=== PATIENT | female | born 1940 | race Caucasian/White ===

== ENCOUNTER 2018-07-11 16:07 | Emergency (ER) | payer OTHER ==
[~2018-07-11] VITALS: Ht 160 cm; Wt 68.0 kg
[~2018-07-11 16:07] MED LIST: ASPI-1093 PO; CIPR250T6 PO; DICL-388 PO; DIT5 PO; INSU10SU8 SUBQ; ISOS10TA9 PO; LYR50 PO; METF500T PO; METO25TE2 PO; NITR100C7 PO; OMEG1SGL6 PO; OMEP20EC4 PO; PHEN-329 PO; PRAV40TA1 PO; VIGOS RIGHT EYE; [UNRECOGNIZED DRUG - CODE] RIGHT EYE
[2018-07-11 16:08] VITALS: BP 112/52
[2018-07-11 17:04] VITALS: BP 112/52
== END 2018-07-11 17:05 | disposition short-term general hospital (02) ==
LOC: MED 16:07
DX: I63.9 Cerebral infarction, unspecified (principal); R47.89 Other speech disturbances; I10 Essential (primary) hypertension; R91.1 Solitary pulmonary nodule; E11.9 Type 2 diabetes mellitus without complications; Z79.899 Other long term (current) drug therapy; Z79.84 Long term (current) use of oral hypoglycemic drugs
CPT/HCPCS: 70450; 71045; 99291

== ENCOUNTER 2019-01-07 18:46 | Inpatient (IN) | payer OTHER ==
[~2019-01-07] VITALS: Ht 152.4 cm; Wt 54.0 kg
[2019-01-07] MEDS: NACL 0.9% 1,000 ML IV SCH (11:30)
[~2019-01-07 18:46] MED LIST changes: -CIPR250T6 PO; -INSU10SU8 SUBQ; +NOV7030 SUBQ
[2019-01-07 18:47] VITALS: BP 175/71
--- NOTE | 2019-01-07 18:55 | NUR ---
spoke with about possible code brain---
--- NOTE | 2019-01-07 19:06 | NUR ---
PT BIB DAUGHTER, wheelchair assisted from car, daughter stated she awoke pt from nap at 4pm noted pt c/o weakness unable to stand on her own as she normally is able, AT 5pm complete weakness unable to apply any weight ble. left sided facial droop residual for pt; hot to touch. full clear speech, denies headache or dizziness. denies n/v/d. VSS. ER MD TO SEE PT. hx---cva, mi, cad, hyperlipidemia, dm, brain tumor/lung rx----no list at this time
[2019-01-07 19:21] LABS: BASOPHILS % (AUTO) 0.6 % (0.0-2.0); EOSINOPHILS # (AUTO) 0.1 K/uL (0-0.4); EOSINOPHILS % (AUTO) 1.2 % (0.0-4.0); HEMATOCRIT 33.7 % (36-48); HEMOGLOBIN 10.9 g/dL (12.0-16.0); LYMPHOCYTES # (AUTO) 1.9 K/uL (2.5-16.5); LYMPHOCYTES % (AUTO) 29.3 % (20.5-51.1); MEAN CORPUSCULAR HEMOGLOBIN 32 pg (27-31); MEAN CORPUSCULAR HGB CONC 33 g/dL (33-37); MEAN CORPUSCULAR VOLUME 98.9 fL (80-94); MONOCYTES # (AUTO) 0.6 K/uL (0.8-1.0); MONOCYTES % (AUTO) 8.7 % (1.7-9.3); NEUTROPHILS # (AUTO) 3.8 K/uL (1.8-7.7); NEUTROPHILS % (AUTO) 60.2 % (42.2-75.2); PLATELET COUNT (AUTO) 226 K/uL (140-450); RED CELL DISTRIBUTION WIDTH 14.6 % (11.6-13.7); WHITE BLOOD COUNT (AUTO) 6.4 K/uL (4.8-10.8)
[2019-01-07] MEDS ORDERED: ACETAMINOPHEN EXTRA STRENGTH 500 MG TAB PO ONE (19:30)
[2019-01-07] MEDS ORDERED: NACL 0.9% 1,000 ML IV ONE (19:30)
--- NOTE | 2019-01-07 19:37 | NUR ---
Iliana from [facility] called to report critical report. Impression: No intracranial bleed is identified. Dr. Cartwright made aware.
[2019-01-07 19:38] LABS: ANION GAP 18.1 (8-16); CARBON DIOXIDE 21.4 mmol/L (21-32); CHLORIDE 101 mmol/L (98-107); CREATININE 1.2 mg/dL (0.6-1.3); GLUCOSE 168 mg/dL (74-106); POTASSIUM 4.5 mmol/L (3.5-5.1); SODIUM SERUM 136 mmol/L (136-145); UREA NITROGEN, BLOOD 19 mg/dL (7-18)
[2019-01-07 19:39] LABS: PROTHROMBIN TIME 9.6 secs (10.8-13.4)
[2019-01-07 19:44] LABS: ALBUMIN 3.5 g/dL (3.4-5.0); ASPARTATE AMINOTRANSFERASE 11 U/L (15-37); TOTAL BILIRUBIN 0.7 mg/dL (0.0-1.0)
--- NOTE | 2019-01-07 20:00 | NUR ---
PT IN BED RESTING WITH EYES CLOSED. AFEBRILE. 99.9 WITH VSS. POSITIONED IN BED FOR COMFORT. FAMILY AT BEDSIDE. NO C/O PAIN. ALERT TO NAME TIME AND PLACE. CONTINUE TO MONITOR.
[2019-01-07 20:08] LABS: APPEARANCE,URINE CLOUDY (CLEAR); BILIRUBIN,URINE 1+ (NEGATIVE); BLOOD, URINE NEGATIVE (NEGATIVE); COLOR,URINE YELLOW (YELLOW); LEUKOCYTE ESTERASE ,URINE 2+ (NEGATIVE); NITRITE, URINE NEGATIVE (NEGATIVE); PH,URINE 6.5 (5.0-9.0); UGLUCOSE NEGATIVE (NEGATIVE)
[2019-01-07 20:11] LABS: RBC,URINE 0-5 /HPF (0-5); WBC,URINE 16-25 (MOD) /HPF (0-5)
[2019-01-07] MEDS ORDERED: LEVOFLOXACIN 750 MG/D5W PREMIX 150 ML IV ONE (20:20)
--- NOTE | 2019-01-07 20:30 | NUR ---
EKG PERFORMED AT BEDSIDE
[2019-01-07] MEDS ORDERED: NACL 0.9% 500 ML IV ONE (20:50)
[2019-01-07] MEDS ORDERED: DULO30EC PO (21:00)
[2019-01-07] MEDS ORDERED: METO50TE2 PO (21:00)
[2019-01-07] MEDS ORDERED: METF500T PO (21:00)
[2019-01-07] MEDS ORDERED: ERGO50CA PO (21:00)
[2019-01-07] MEDS ORDERED: DULA0.75 SQ (21:00)
[2019-01-07] MEDS ORDERED: SERT25TA PO (21:00)
[2019-01-07] MEDS ORDERED: NIAC500T6 PO (21:00)
[2019-01-07] MEDS ORDERED: ATOR40TA PO (21:00)
[2019-01-07] MEDS ORDERED: LOSA100T51 PO (21:00)
[2019-01-07] MEDS ORDERED: INSU100S22 SQ (21:00)
[2019-01-07] MEDS ORDERED: DIT5 PO (21:00)
[2019-01-07] MEDS ORDERED: ZET10 PO (21:00)
[2019-01-07] MEDS ORDERED: BUPR75TA3 PO (21:00)
--- NOTE | 2019-01-07 21:00 | NUR ---
PT IN BED RESTING WITH EYES CLOSED. NO C/O PAIN. ALERT TO NAME TIME AND PLACE. POSITIONED IN BED FOR COMFORT. FAMILY AT BEDSIDE. CONTINUE TO MONITOR.
--- NOTE | 2019-01-07 21:27 | NUR ---
PT TAKEN TO CT
--- NOTE | 2019-01-07 21:43 | NUR ---
PT BACK FROM CT
[2019-01-07] MEDS ORDERED: ACETAMINOPHEN 325 MG TAB PO PRN (23:25)
[2019-01-07] MEDS ORDERED: MORPHINE SULFATE 4 MG/ML SYR IVP PRN (23:25)
[2019-01-07] MEDS ORDERED: ALBUTEROL 0.083% 2.5 MG/3 ML NEBU INH PRN (23:25)
[2019-01-07] MEDS ORDERED: hydrALAZINE 20 MG/ML VIAL IVP PRN (23:25)
[2019-01-07] MEDS ORDERED: ONDANSETRON 4 MG/2 ML VIAL IVP PRN (23:25)
[2019-01-07] MEDS ORDERED: INSULIN LISPRO SLIDING SCALE 100 UNITS/ML VIAL SUBQ PRN (23:25)
[2019-01-07] MEDS ORDERED: DULAGLUTIDE 0.75 MG SQ SCH (23:25)
[2019-01-07] MEDS ORDERED: DEXTROSE 50% 50 ML SYR IVP PRN (23:25)
[2019-01-08 00:45] VITALS: BP 90/58
--- NOTE | 2019-01-08 00:45 | NUR ---
REPORT GIVEN AND CARE TRANSFERED TO [facility] ROOM 128B. TRANSFERED VIA GURNEY WITH VSS.
--- NOTE | 2019-01-08 00:45 | NUR ---
PT ARRIVED TO UNIT VIA GURNEY AND WAS ASSISTED BY TWO ER NURSES TO AMBULATE TO UNIT BED. PT SON AT BEDSIDE. RECEIVED REPORT FROM ER NURSE JOE-RN AT BEDSIDE. PT AOX4- VIETNAMESE SPEAKING, ON 2L/NC, WITH LEFT HAND #22G, AND WITH LEFT SIDED WEAKNESS- USES WALKER AT BASELINE. DISCUSSED PLAN OF CARE AND PT VERBALIZED UNDERSTANDING. VITAL SIGNS TAKEN AND TOLERATED WELL- DECREASED BP NOTED. NO S/S OF RESPIRATORY DISTRESS OR DISCOMFORT NOTED AT THIS TIME. MRSA SWAB COLLECTED AND TOLERATED WELL. EDUCATED PT DIRECTOR OF STRATEGIC SALES LIGHT AND BED FUNCTIONS- PT VERBALIZED UNDERSTANDING. BED IN LOWEST POSITION, BED BREAKS ON, BOTH SIDE RAILS UP AND FALL PRECAUTIONS ARE IN PLACE. BED SIDE TABLE AND CALL LIGHT ARE WITHIN REACH. WILL CONTINUE OT MONITOR.
[2019-01-08] MEDS ORDERED: cefTRIAXone 1,000 MG VIAL ONE (01:12)
--- NOTE | 2019-01-08 01:17 | NUR ---
SCHEDULED MEDICATION ROCEPHIN GIVEN AND TOLERATED WELL. NO S/S OF RESPIRATORY DISTRESS OR DISCOMFORT NOTED AT THIS TIME. WILL CONTINUE TO MONITOR.
--- NOTE | 2019-01-08 02:30 | NUR ---
CORIN GUNN ASSISTING PT WITH DIAPER CHANGE AFTER INCONTINENT OF URINE. PT TOLERATED WELL. NO S/S OF RESPIRATORY DISTRESS OR DISCOMFORT NOTED AT THIS TIME. WILL CONTINUE TO MONITOR.
[2019-01-08 04:00] VITALS: BP 152/67
--- NOTE | 2019-01-08 04:00 | NUR ---
VITAL SIGNS TAKEN AND TOLERATED WELL. NO S/S OF RESPIRATORY DISTRESS OR DISCOMFORT NOTED AT THIS TIME. WILL CONTINUE TO MONITOR.
--- NOTE | 2019-01-08 06:00 | NUR ---
PT CONTINUES TO SLEEP IN BED. NO S/S OF RESPIRATORY DISTRESS OR DISCOMFORT NOTED AT THIS TIME. WILL CONTINUE TO MONITOR.
[2019-01-08] MEDS: BLOOD GLUCOSE MONITORING 1 DEV DEV FS SCH ×4 (06:33→21:00)
[2019-01-08 06:34] LABS: BASOPHILS % (AUTO) 0.6 % (0.0-2.0); EOSINOPHILS # (AUTO) 0.1 K/uL (0-0.4); EOSINOPHILS % (AUTO) 1.6 % (0.0-4.0); HEMATOCRIT 30.3 % (36-48); LYMPHOCYTES # (AUTO) 2.1 K/uL (2.5-16.5); LYMPHOCYTES % (AUTO) 39.9 % (20.5-51.1); MEAN CORPUSCULAR HEMOGLOBIN 33 pg (27-31); MEAN CORPUSCULAR HGB CONC 33 g/dL (33-37); MEAN CORPUSCULAR VOLUME 99.6 fL (80-94); MONOCYTES # (AUTO) 0.6 K/uL (0.8-1.0); MONOCYTES % (AUTO) 11.4 % (1.7-9.3); NEUTROPHILS # (AUTO) 2.5 K/uL (1.8-7.7); NEUTROPHILS % (AUTO) 46.5 % (42.2-75.2); PLATELET COUNT (AUTO) 179 K/uL (140-450); RED BLOOD CELL COUNT(AUTO) 3.04 MIL/uL (4.20-5.40); RED CELL DISTRIBUTION WIDTH 14.4 % (11.6-13.7); WHITE BLOOD COUNT (AUTO) 5.3 K/uL (4.8-10.8)
--- NOTE | 2019-01-08 06:34 | NUR ---
BLOOD GLUCOSE 110- NO INSULIN COVERAGE NEEDED. NO S/S OF RESPIRATORY DISTRESS OR DISCOMFORT NOTED AT THIS TIME. WILL CONTINUE TO MONITOR.
--- NOTE | 2019-01-08 07:00 | NUR ---
RECEIVED PT FROM [facility] SHIFT [facility], PT IS AWAKE AND LYING ON THE BED WITH SIDE RAILS UP AND CALL LIGHT WITHIN REACH, PT ON FALL PRECAUTION,FALL PRECAUTION ENFORCED, PT HAS AN IV LINE ON THE LEFT HAND G. 22 ON SALINE LOCK, PT DENEIS PAIN AND NO SOB NOTED. WILL MONITOR PT.
[2019-01-08 07:02] LABS: CHLORIDE 108 mmol/L (98-107); POTASSIUM 4.2 mmol/L (3.5-5.1); SODIUM SERUM 144 mmol/L (136-145)
[2019-01-08 07:03] LABS: ANION GAP 16.4 (8-16); CARBON DIOXIDE 23.8 mmol/L (21-32); GLUCOSE 114 mg/dL (74-106); UREA NITROGEN, BLOOD 16 mg/dL (7-18)
[2019-01-08 07:13] LABS: MAGNESIUM 1.6 mg/dL (1.8-2.4); PHOSPHORUS 4.2 mg/dL (2.5-4.9)
[2019-01-08 08:00] VITALS: BP 121/54
--- NOTE | 2019-01-08 08:44 | NUR ---
PATIENT HAS BEEN SCREENED AND CATEGORIZED HIGH NUTRITION RISK. PATIENT WILL BE SEEN WITHIN 1-2 DAYS OF ADMISSION. 01/08/19-01/09/[address]
[2019-01-08] MEDS ORDERED: ERGOCALCIFEROL 50,000 IU CAP PO SCH (09:00)
[2019-01-08] MEDS: OXYBUTYNIN 5 MG TAB PO SCH ×2 (09:05→22:19)
[2019-01-08] MEDS: buPROPion 75 MG TAB PO SCH ×2 (09:06→22:22)
[2019-01-08] MEDS: NIACIN 500 MG TAB PO SCH ×2 (09:06→22:21)
[2019-01-08] MEDS: SERTRALINE 50 MG TAB PO SCH (09:07)
[2019-01-08] MEDS: EZETIMIBE 10 MG TAB PO SCH (09:08)
[2019-01-08] MEDS: metFORMIN 500 MG TAB PO SCH ×2 (09:08→22:20)
[2019-01-08] MEDS: DULoxetine 30 MG CAPDR PO SCH ×2 (09:08→22:19)
[2019-01-08] MEDS: LOSARTAN 50 MG TAB PO SCH (09:09)
[2019-01-08] MEDS: INSULIN LANTUS 100 UNITS/ML 10 ML VIAL SUBQ SCH ×2 (09:12→22:22)
[2019-01-08] MEDS: ENOXAPARIN 40 MG/0.4 ML SYR SUBQ SCH (09:12)
--- NOTE | 2019-01-08 11:15 | NUR ---
DR. ANDRADE CAME TO PT'S ROOM AND TALKED TO PT.
--- NOTE | 2019-01-08 11:30 | NUR ---
PT WAS STARTED ON IVF OF NS AT 60ML/HR.
[2019-01-08 12:00] VITALS: BP 122/60
--- NOTE | 2019-01-08 15:20 | NUR ---
PAGED DR. ANDRADE FOR PT'S MG LEVEL OF 1.6, AWAITING MD CALL BACK.
--- NOTE | 2019-01-08 15:23 | NUR ---
DR. ANDRADE CALLED BACK AND INFORMED OF PT'S MG LEVEL OF 1.6, MADE A TELEPHONE ORDER TO GIVE PT MGSO4 4GM IVPB X 1 DOSE NOW, ORDERED READ BACK AND VERIFIED. WILL CARRY OUT ORDER
[2019-01-08] MEDS ORDERED: MAG SULF IV ONE (15:25)
[2019-01-08] MEDS ORDERED: WATER IV ONE (15:25)
[2019-01-08 16:00] VITALS: BP 113/51
[2019-01-08] MEDS: NACL 0.9% 1,000 ML IV SCH (16:03)
[2019-01-08] MEDS: HYDROcodone/APAP 5/325 MG 1 TAB TAB PO PRN (16:05)
--- NOTE | 2019-01-08 16:12 | NUR ---
PT WAS STARTED ON MAGNESIUM SULFATE NOW CORY MG LEVEL OF 1.6, PT VERBALIZED PAIN ON THE RT LEG OF A 7/10, MEDICATION WAS GIVEN, PARAMETER CHECKED. WILL RE-ASSESS PAIN AND MONITOR PT.
--- NOTE | 2019-01-08 17:35 | NUR ---
PT IS AWAKE AND BLOOD GLUCOSE CHECK DONE AND RESULT IS 93 AND NO INSULIN COVERAGE NEEDED, SECOND BAG OF MAGNESIUM SULFATE WAS STARTED TO PT NOW. WILL MONITOR PT.
--- NOTE | 2019-01-08 19:25 | NUR ---
ENDORSED PT LENS MOLD SETTER NURSE FOR CONTINUITY OF CARE.
--- NOTE | 2019-01-08 19:26 | NUR ---
RECEIVED PT FROM AM SHIFT NURSE, PT IS AWAKE ALERT ORIENTED X 3. MALDIVIAN SPEAKER. DOES NOT UNDERSTAND [place] .PT LYING ON THE BED WITH SIDE RAILS UP AND CALL LIGHT WITHIN REACH, PT ON FALL PRECAUTION,FALL PRECAUTION INITIATED . PT HAS AN IV LINE ON THE LEFT HAND G. 22 W/ NS AT 60 ML/HR. PT DENIES PAIN AND NO SOB NOTED. WILL MONITOR PT.
[2019-01-08 20:00] VITALS: BP 136/64
--- NOTE | 2019-01-08 20:34 | NUR ---
RECEIVED PATIENT ON ROOM AIR, PULSE OX SAT 96%. NO SOB NOTED AT THIS TIME; PRN BREATHING TREATMENT NOT INDICATED AT THIS TIME. WILL CONTINUE TO MONITOR.
[2019-01-08] MEDS ORDERED: ATORVASTATIN 20 MG TAB PO SCH (21:00)
[2019-01-08] MEDS ORDERED: METOPROLOL SUCCINATE 50 MG TABER PO SCH (21:00)
[2019-01-09] VITALS: BP 135/65
--- NOTE | 2019-01-09 02:30 | NUR ---
PT ABLE TO GO TO COMMODE, W/AMBULATORY W/ ASSIST. VOIDED 2X
--- NOTE | 2019-01-09 03:42 | NUR ---
PT VOMITED DARK BROWNISH MINIMAL FOOD CONTENTS, GIVEN ONDANSETRON
--- NOTE | 2019-01-09 03:42 | NUR ---
CALLED ASSISTANT SALES DIRECTOR MARAL [id number], PT C/O GASTRIC REFLUX, WILL INFORM IN THE AM. GIVEN WARM WATER, AND GAVE CRACKERS, IN SMALL AMOUNTS.
--- NOTE | 2019-01-09 03:44 | NUR ---
WILL GIVE ONDASETRON, NOTED PT TRYING TO VOMIT BUT NO VOMITUS
--- NOTE | 2019-01-09 04:23 | NUR ---
PT COMFORTABLE AT THIS TIME, TERYING TO GET SOME SLEEP, NO COMPLAINTS AT THIS TIME.
[2019-01-09] MEDS: NACL 0.9% 1,000 ML IV SCH (05:59)
[2019-01-09] MEDS: BLOOD GLUCOSE MONITORING 1 DEV DEV FS SCH ×2 (05:59→12:11)
[2019-01-09 06:00] VITALS: BP 98/55
--- NOTE | 2019-01-09 06:18 | NUR ---
PT C/O OF PAIN BILATERAL LEGS, WILL MEDICATE
[2019-01-09] MEDS: HYDROcodone/APAP 5/325 MG 1 TAB TAB PO PRN (06:22)
[2019-01-09 06:29] LABS: ANION GAP 14.7 (8-16); CARBON DIOXIDE 23.1 mmol/L (21-32); CHLORIDE 104 mmol/L (98-107); CREATININE 0.8 mg/dL (0.6-1.3); GLUCOSE 148 mg/dL (74-106); MAGNESIUM 1.7 mg/dL (1.8-2.4); PHOSPHORUS 3.7 mg/dL (2.5-4.9); POTASSIUM 3.8 mmol/L (3.5-5.1); SODIUM SERUM 138 mmol/L (136-145); UREA NITROGEN, BLOOD 13 mg/dL (7-18)
[2019-01-09 06:49] LABS: BASOPHILS % (AUTO) 0.5 % (0.0-2.0); EOSINOPHILS # (AUTO) 0.1 K/uL (0-0.4); EOSINOPHILS % (AUTO) 1.3 % (0.0-4.0); HEMATOCRIT 32.1 % (36-48); HEMOGLOBIN 10.6 g/dL (12.0-16.0); LYMPHOCYTES # (AUTO) 1.7 K/uL (2.5-16.5); LYMPHOCYTES % (AUTO) 25.4 % (20.5-51.1); MEAN CORPUSCULAR HEMOGLOBIN 33 pg (27-31); MEAN CORPUSCULAR HGB CONC 33 g/dL (33-37); MONOCYTES # (AUTO) 0.5 K/uL (0.8-1.0); MONOCYTES % (AUTO) 7.6 % (1.7-9.3); NEUTROPHILS # (AUTO) 4.3 K/uL (1.8-7.7); NEUTROPHILS % (AUTO) 65.2 % (42.2-75.2); PLATELET COUNT (AUTO) 176 K/uL (140-450); RED BLOOD CELL COUNT(AUTO) 3.24 MIL/uL (4.20-5.40); RED CELL DISTRIBUTION WIDTH 14.4 % (11.6-13.7); WHITE BLOOD COUNT (AUTO) 6.5 K/uL (4.8-10.8)
--- NOTE | 2019-01-09 07:18 | NUR ---
ENDORSED TO NEXT SHIFT FOR CONTINUITY OF CARE.W/ PAIN REASSESSMENT DUE. PT HAD VOMITING X 1, DARK BROWN. BP 150/68, W/ BP MEDS THIS AM
--- NOTE | 2019-01-09 07:20 | NUR ---
RECEIVED PT FROM VP PRODUCT MANAGEMENT NURSE, PT IS AWAKE AND LYING ON THE BED WITH SIDE RAILS UP AND CALL LIGHT WITHIN REACH, PT HAS AN IV LINE ON THE LEFT HAND G. 22 WITH NS INFUSING AT 60ML/HR, INTACT, PT DENIES PAIN AND NO SOB NOTED. WILL CONTINUE TO MONITOR PT.
[2019-01-09 08:00] VITALS: BP 133/58
[2019-01-09] MEDS ORDERED: CEPH250C16 PO (08:22)
[2019-01-09] MEDS ORDERED: MAG SULF 2000 MG/WATER PREMIX 50 ML IV SCH (09:00)
[2019-01-09] MEDS: SERTRALINE 50 MG TAB PO SCH (09:35)
[2019-01-09] MEDS: DULoxetine 30 MG CAPDR PO SCH (09:35)
[2019-01-09] MEDS: NIACIN 500 MG TAB PO SCH (09:35)
[2019-01-09] MEDS: OXYBUTYNIN 5 MG TAB PO SCH (09:36)
[2019-01-09] MEDS: EZETIMIBE 10 MG TAB PO SCH (09:36)
[2019-01-09] MEDS: buPROPion 75 MG TAB PO SCH (09:36)
[2019-01-09] MEDS: metFORMIN 500 MG TAB PO SCH (09:36)
[2019-01-09] MEDS: LOSARTAN 50 MG TAB PO SCH (09:37)
[2019-01-09] MEDS: ENOXAPARIN 40 MG/0.4 ML SYR SUBQ SCH (09:40)
[2019-01-09] MEDS: INSULIN LANTUS 100 UNITS/ML 10 ML VIAL SUBQ SCH (09:40)
--- NOTE | 2019-01-09 09:40 | NUR ---
PT IS AWAKE AND LYING ON THE BED, MEDICATIONS WERE GIVEN AND PT TOLERATED. WILL MONITOR PT.
[2019-01-09 12:00] VITALS: BP 146/76
--- NOTE | 2019-01-09 12:11 | NUR ---
PT IS AWAKE AND BLOOD GLUCOSE CHECK DONE AND RESULT IS 87, NO INSULIN COVERAGE NEEDED. WILL MONITOR PT.
--- NOTE | 2019-01-09 13:38 | NUR ---
DISCHARGED PT TO HOME VIA WHEELCHAIR WITH DAUGHTERS, TEACHINGS AND INSTRUCTIONS GIVEN TO PT PER SOFTWARE TEST TECHNICIAN #[id number], PT VERBALIZED UNDERSTANDING. IV LINE AND ARM BANDS REMOVED. PT IS STABLE AT THIS TIME.
== END 2019-01-09 13:38 | disposition home or self-care (01) | DRG 872 ==
LOC: MED 18:46 → MMU 23:23
PROVIDERS: ADMIT Internal Medicine Pulmonary Disease; ATTEND Internal Medicine Pulmonary Disease
DX: A41.9 Sepsis, unspecified organism (principal); N39.0 Urinary tract infection, site not specified; C34.90 Malignant neoplasm of unspecified part of unspecified bronchus or lung; I69.354 Hemiplegia and hemiparesis following cerebral infarction affecting left non-dominant side; E86.0 Dehydration; I10 Essential (primary) hypertension; E11.9 Type 2 diabetes mellitus without complications; F32.9 Major depressive disorder, single episode, unspecified; I25.10 Atherosclerotic heart disease of native coronary artery without angina pectoris; Z85.118 Personal history of other malignant neoplasm of bronchus and lung; Z95.1 Presence of aortocoronary bypass graft
CPT/HCPCS: 36415; 70450; 71045; 71250; 80048; 80053; 81001; 82948; 83605; 83735; 84100; 84484; 85025; 85610; 87040; 87081; 87086; 87186; 87804; 96365; 96366; 99285; C1758; J0696; J1650; J1815; J1956; J2405; J3475; J7030; J7060; Q0092

== ENCOUNTER 2019-03-30 17:08 | Emergency (ER) | payer OTHER ==
[~2019-03-30] VITALS: Ht 160 cm; Wt 61.2 kg
[~2019-03-30 17:08] MED LIST changes: -ASPI-1093 PO; +ATOR40TA PO; +BUPR75TA3 PO; +CEPH250C16 PO; -DICL-388 PO; +DULA0.75 SQ; +DULO30EC PO; +ERGO50CA PO; +INSU100S22 SQ; -ISOS10TA9 PO; +LOSA100T51 PO; -LYR50 PO; -METO25TE2 PO; +METO50TE2 PO; +NIAC500T6 PO; -NITR100C7 PO; -NOV7030 SUBQ; -OMEG1SGL6 PO; -OMEP20EC4 PO; -PHEN-329 PO; -PRAV40TA1 PO; +SERT25TA PO; -VIGOS RIGHT EYE; +ZET10 PO; -[UNRECOGNIZED DRUG - CODE] RIGHT EYE
--- NOTE | 2019-03-30 17:10 | NUR ---
Patient taken via w/c to bed 3
[2019-03-30 17:15] VITALS: BP 161/77
[2019-03-30] MEDS ORDERED: NACL 0.9% 500 ML IV SCH (17:22)
[2019-03-30] MEDS ORDERED: KETOROLAC 30 MG/ML VIAL IVP ONE (17:25)
[2019-03-30] MEDS ORDERED: PANTOPRAZOLE 40 MG INJ VIAL IVP ONE (17:25)
--- NOTE | 2019-03-30 17:25 | NUR ---
PT C/O BURNING EPIGASTRIC PAIN AND VOMITING X3 DAYS. 05/08 PAIN. NO DIARRHEA, NO FEVER. UNABLE TO KEEP ANYTHING DOWN. PT LAYING IN BED W/ FAMILY AT BEDSIDE. BS 113 MEDX: DM, HTN, HIGH CHOLESTEROL Addendum: 03/30/19 at 1726 by [email or web address] PT CALM, RELAXED IN BED.
--- NOTE | 2019-03-30 17:50 | NUR ---
US AT BEDSIDE
[2019-03-30 18:08] LABS: BASOPHILS % (AUTO) 0.3 % (0.0-2.0); EOSINOPHILS % (AUTO) 0.6 % (0.0-4.0); HEMATOCRIT 33.3 % (36-48); LYMPHOCYTES % (AUTO) 40.3 % (20.5-51.1); MEAN CORPUSCULAR HEMOGLOBIN 32 pg (27-31); MEAN CORPUSCULAR HGB CONC 33 g/dL (33-37); MEAN CORPUSCULAR VOLUME 97.3 fL (80-94); MONOCYTES # (AUTO) 0.5 K/uL (0.8-1.0); MONOCYTES % (AUTO) 6.6 % (1.7-9.3); NEUTROPHILS # (AUTO) 3.9 K/uL (1.8-7.7); NEUTROPHILS % (AUTO) 52.2 % (42.2-75.2); PLATELET COUNT (AUTO) 265 K/uL (140-450); RED BLOOD CELL COUNT(AUTO) 3.42 MIL/uL (4.20-5.40); RED CELL DISTRIBUTION WIDTH 14.1 % (11.6-13.7); WHITE BLOOD COUNT (AUTO) 7.5 K/uL (4.8-10.8)
--- NOTE | 2019-03-30 18:17 | NUR ---
X-Ray at bedside.
[2019-03-30 18:23] LABS: PROTHROMBIN TIME 9.9 secs (10.8-13.4)
[2019-03-30 18:25] LABS: ANION GAP 13.4 (8-16); CARBON DIOXIDE 24.9 mmol/L (21-32); CHLORIDE 106 mmol/L (98-107); CREATININE 0.9 mg/dL (0.6-1.3); GLUCOSE 122 mg/dL (74-106); POTASSIUM 4.3 mmol/L (3.5-5.1); SODIUM SERUM 140 mmol/L (136-145); UREA NITROGEN, BLOOD 19 mg/dL (7-18)
[2019-03-30 18:40] LABS: ALBUMIN 3.5 g/dL (3.4-5.0); ASPARTATE AMINOTRANSFERASE 11 U/L (15-37); TOTAL BILIRUBIN 0.5 mg/dL (0.0-1.0)
[2019-03-30 18:51] LABS: APPEARANCE,URINE HAZY (CLEAR); BILIRUBIN,URINE NEGATIVE (NEGATIVE); BLOOD, URINE NEGATIVE (NEGATIVE); COLOR,URINE YELLOW (YELLOW); LEUKOCYTE ESTERASE ,URINE 1+ (NEGATIVE); NITRITE, URINE NEGATIVE (NEGATIVE); UGLUCOSE NEGATIVE (NEGATIVE)
[2019-03-30 19:00] LABS: RBC,URINE 0-5 /HPF (0-5); WBC,URINE TOO MANY TO COUNT /HPF (0-5)
[2019-03-30] MEDS ORDERED: LEVOFLOXACIN 500 MG/D5W PREMIX 100 ML IV ONE (19:05)
--- NOTE | 2019-03-30 19:15 | NUR ---
TRANSFER OF CARE AND REPORT GIVEN FROM FRED CUELLAR
--- NOTE | 2019-03-30 19:45 | NUR ---
PT TO BE TRANSFERRED TO [facility] BY S FOR CT
--- NOTE | 2019-03-30 19:50 | NUR ---
CONTACT INFORMATION TIMMY (DAUGHTER) NAIDA (DAUGHTER)
--- NOTE | 2019-03-30 19:52 | NUR ---
[place]AK[place] [facility] [place]
--- NOTE | 2019-03-30 21:57 | NUR ---
PT RETURNED FROM [facility] WITH EMS AT THIS TIME
--- NOTE | 2019-03-30 22:00 | NUR ---
SPOKE TO TIMMY (DAUGHTER) TO UPDATE HER ON PT ARRIVAL
--- NOTE | 2019-03-30 22:10 | NUR ---
PT RESTING IN BED COMFORTABLY. VSS. WILL CONTINUE TO MONITOR.
--- NOTE | 2019-03-30 23:14 | NUR ---
PT HAS HEADACHE. PAIN LEVEL 7/10. ERMD MADE AWARE.
[2019-03-30] MEDS ORDERED: IBUPROFEN 600 MG TAB PO ONE (23:15)
--- NOTE | 2019-03-31 00:04 | NUR ---
Patient discharged with v/s stable. Written and verbal after care instructions given and explained. PT EDUCATED TO DRINK PLENTY OF FLUIDS AND TO ALTERNATE BETWEEN IBUPROFEN AND TYLENOL NEEDED FOR PAIN.Patient alert, oriented and verbalized understanding of instructions. Wheel Chair Assisted with to car. All questions addressed prior to discharge. ID band removed. Patient advised to follow up with PMD. Rx of NEXIUM AND MACROBID WAS given. Patient educated on indication of medication including possible reaction and side effects. Opportunity to ask questions provided and answered.
[2019-03-31 00:06] VITALS: BP 159/70
== END 2019-03-31 00:04 | disposition home or self-care (01) ==
LOC: MED 17:08
DX: N39.0 Urinary tract infection, site not specified (principal); K29.70 Gastritis, unspecified, without bleeding; E11.9 Type 2 diabetes mellitus without complications; I10 Essential (primary) hypertension; Z85.118 Personal history of other malignant neoplasm of bronchus and lung; Z86.73 Personal history of transient ischemic attack (TIA), and cerebral infarction without residual deficits; Z98.890 Other specified postprocedural states; Z79.4 Long term (current) use of insulin; Z79.899 Other long term (current) drug therapy
CPT/HCPCS: 36415; 71045; 76705; 80053; 81001; 82948; 83605; 83690; 83880; 84484; 85025; 85610; 85730; 87040; 87086; 87186; 93005; 96361; 96365; 96366; 96375; 99284; C9113; J1885; J1956; J7030; Q0092

== ENCOUNTER 2023-02-13 17:40 | Emergency (ER) | payer OTHER ==
[~2023-02-13] VITALS: Ht 157.5 cm; Wt 44.5 kg
[~2023-02-13 17:40] MED LIST changes: -BUPR75TA3 PO; -CEPH250C16 PO; -DIT5 PO; +EZET10TA14 PO; -LOSA100T51 PO; +LOSA100T52 PO; +METF-346 PO; -METF500T PO; -NIAC500T6 PO; +OXYB5TAB44 PO; -ZET10 PO
[2023-02-13 18:09] VITALS: BP 137/66; PULSE 77; RESP 18; TEMP 97.3; O2SAT 99
--- NOTE | 2023-02-13 18:51 | NUR ---
82YO F BIB DAUGHTER, SENT FROM [facility] SALVAGING OFFICE DR. HATFIELD. DAUGHTER STATES PT HAS NOT BEEN EATING OR EATING USUAL, SLEEPING A LOT X 1 WK. PT STATES SHE ATE 1/2 BURGER PRIOR TO ARRIVAL. DENIES N,V,D,C,FEVER, CHILLS, INJURY. AOX4, SKIN INTACT/DRY. NAD NOTED, SAFETY MAINTAINED. HX:HTN, DM, CATARACTS RT EYE, DEMENTIA, LT LUNG CANCER, CABG 2015
[2023-02-13 19:02] LABS: BASOPHILS % (AUTO) 0.7 % (0.0-2.0); EOSINOPHILS # (AUTO) 0.1 K/uL (0-0.4); EOSINOPHILS % (AUTO) 0.8 % (0.0-4.0); HEMATOCRIT 34.9 % (36-48); HEMOGLOBIN 11.5 g/dL (12.0-16.0); LYMPHOCYTES # (AUTO) 1.5 K/uL (2.5-16.5); LYMPHOCYTES % (AUTO) 22.5 % (20.5-51.1); MEAN CORPUSCULAR HEMOGLOBIN 35 pg (27-31); MEAN CORPUSCULAR HGB CONC 33 g/dL (33-37); MONOCYTES # (AUTO) 0.6 K/uL (0.8-1.0); MONOCYTES % (AUTO) 8.6 % (1.7-9.3); NEUTROPHILS # (AUTO) 4.4 K/uL (1.8-7.7); NEUTROPHILS % (AUTO) 67.4 % (42.2-75.2); PLATELET COUNT (AUTO) 306 K/uL (140-450); RED BLOOD CELL COUNT(AUTO) 3.32 MIL/uL (4.20-5.40); RED CELL DISTRIBUTION WIDTH 14.7 % (11.6-13.7); WHITE BLOOD COUNT (AUTO) 6.6 K/uL (4.8-10.8)
[2023-02-13 19:19] LABS: PROTHROMBIN TIME 10.5 secs (10.8-13.4)
[2023-02-13 19:23] LABS: ANION GAP 16.2 (8-16); ASPARTATE AMINOTRANSFERASE 12 U/L (15-37); CHLORIDE 104 mmol/L (98-107); GLUCOSE 159 mg/dL (74-106); POTASSIUM 4.2 mmol/L (3.5-5.1); SODIUM SERUM 140 mmol/L (136-145); TOTAL BILIRUBIN 0.4 mg/dL (0.0-1.0); UREA NITROGEN, BLOOD 19 mg/dL (7-18)
[2023-02-13 19:24] LABS: MAGNESIUM 1.5 mg/dL (1.8-2.4); PHOSPHORUS 3.5 mg/dL (2.5-4.9)
[2023-02-13] MEDS ORDERED: NACL 0.9% 1,000 ML IV ONE (19:35)
[2023-02-13 19:39] VITALS: TEMP 98.3
--- NOTE | 2023-02-13 20:04 | NUR ---
plane tableman Saurav [id number] used for translation. Fish And Wildlife Warden Lamine [id number] at 2053 used for translation.
[2023-02-13 20:05] VITALS: O2SAT 98
[2023-02-13] MEDS ORDERED: NACL 0.9% 500 ML IV ONE (20:45)
[2023-02-13] MEDS ORDERED: AZITHROMYCIN 500 MG in DEXTROSE 5% 250 ML IV ONE (20:45)
[2023-02-13] MEDS ORDERED: AZITHROMYCIN 500 MG INJ VIAL IV ONE (21:00)
[2023-02-13] MEDS ORDERED: cefTRIAXone 1,000 MG VIAL ONE (21:01)
--- NOTE | 2023-02-13 21:20 | NUR ---
case checker from [facility] called for update for possible stable transfer. awaiting approval.
--- NOTE | 2023-02-13 21:49 | NUR ---
pt care provided and repositioned. call light within reach. Daughter queta for update . awaiting possible transfer
[2023-02-13 22:16] LABS: APPEARANCE,URINE CLEAR (CLEAR); BILIRUBIN,URINE NEGATIVE (NEGATIVE); BLOOD, URINE NEGATIVE (NEGATIVE); COLOR,URINE YELLOW (YELLOW); LEUKOCYTE ESTERASE ,URINE NEGATIVE (NEGATIVE); NITRITE, URINE POSITIVE (NEGATIVE); PH,URINE 6.5 (5.0-9.0); UGLUCOSE NEGATIVE (NEGATIVE)
--- NOTE | 2023-02-13 22:18 | NUR ---
UA collected and sent to lab
[2023-02-13 22:19] LABS: RBC,URINE 0-5 /HPF (0-5)
--- NOTE | 2023-02-13 23:00 | NUR ---
[facility] bedside[facility]
[2023-02-14] VITALS: O2SAT 98
--- NOTE | 2023-02-14 01:38 | NUR ---
return call from [facility], accepted to [facility] room [id number] Vipin Murillo. awaiting transport eta
--- NOTE | 2023-02-14 01:57 | NUR ---
nurse called for report to [facility]RA [phone]. awaiting eta for transport
--- NOTE | 2023-02-14 02:30 | NUR ---
pt care provided and repostioned for comfort. call light within reach
--- NOTE | 2023-02-14 02:54 | NUR ---
[facility] transport 60-80 min eta confirmed.
[2023-02-14 04:18] VITALS: BP 108/56; PULSE 62; RESP 16
[2023-02-14 04:20] VITALS: O2SAT 97
--- NOTE | 2023-02-14 04:42 | NUR ---
[facility] TRANSPORT AT BEDSIDE
--- NOTE | 2023-02-14 05:00 | NUR ---
PT TAKEN BY [facility]
--- NOTE | 2023-02-14 05:00 | NUR ---
Patient to be transferred to [facility]. Is being transferred due to higher level of care. Receiving facility has accepting physician and available space. ER physician has signed transfer form. Patient or responsible green party has agreed to transfer and signed form. Patient belongings inventoried and will be sent with patient. Copy of nursing notes, lab reports, EKG, Physicians Orders and X-rays to be sent with patient. Report called to Lamine IBARRA at receiving facility. [facility] ambulance service has been called for transfer. ETA is 60 .
== END 2023-02-14 05:00 | disposition short-term general hospital (02) ==
LOC: MED 17:40
DX: J18.9 Pneumonia, unspecified organism (principal); Z20.822 Contact with and (suspected) exposure to COVID-19; N39.0 Urinary tract infection, site not specified; R62.7 Adult failure to thrive; Z68.1 Body mass index [BMI] 19.9 or less, adult; I11.0 Hypertensive heart disease with heart failure; E11.9 Type 2 diabetes mellitus without complications; F03.90 Unspecified dementia, unspecified severity, without behavioral disturbance, psychotic disturbance, mood disturbance, and anxiety; Z86.73 Personal history of transient ischemic attack (TIA), and cerebral infarction without residual deficits; Z79.899 Other long term (current) drug therapy; Z79.4 Long term (current) use of insulin; Z98.890 Other specified postprocedural states
CPT/HCPCS: 36415; 70450; 71045; 80053; 81001; 83605; 83735; 83880; 84100; 84484; 85025; 85610; 85730; 87040; 87086; 87426; 87804; 93005; 96361; 96365; 96367; 99285; J0456; J0696; J7030

== ENCOUNTER 2023-07-14 21:18 | Inpatient (IN) | payer OTHER ==
[~2023-07-14] VITALS: Ht 157.5 cm; Wt 46.3 kg
[~2023-07-14 21:18] MED LIST changes: -EZET10TA14 PO; +EZET10TA84 PO
[2023-07-14 21:35] VITALS: BP 109/57; PULSE 95; RESP 18; TEMP 97; O2SAT 99
[2023-07-14 23:55] LABS: BASOPHILS % (AUTO) 0.3 % (0.0-2.0); EOSINOPHILS % (AUTO) 0.3 % (0.0-4.0); HEMATOCRIT 28.5 % (36-48); HEMOGLOBIN 9.7 g/dL (12.0-16.0); LYMPHOCYTES # (AUTO) 0.7 K/uL (2.5-16.5); LYMPHOCYTES % (AUTO) 11.3 % (20.5-51.1); MEAN CORPUSCULAR HEMOGLOBIN 34 pg (27-31); MEAN CORPUSCULAR HGB CONC 34 g/dL (33-37); MEAN CORPUSCULAR VOLUME 100.1 fL (80-94); MONOCYTES # (AUTO) 0.5 K/uL (0.8-1.0); MONOCYTES % (AUTO) 8.1 % (1.7-9.3); NEUTROPHILS # (AUTO) 5.1 K/uL (1.8-7.7); PLATELET COUNT (AUTO) 312 K/uL (140-450); RED BLOOD CELL COUNT(AUTO) 2.85 MIL/uL (4.20-5.40); RED CELL DISTRIBUTION WIDTH 16.3 % (11.6-13.7); WHITE BLOOD COUNT (AUTO) 6.3 K/uL (4.8-10.8)
[2023-07-15 00:25] LABS: ALANINE AMINOTRANSFERASE 11 U/L (12-78); ALBUMIN 1.6 g/dL (3.4-5.0); ALKALINE PHOSPHATASE 226 U/L (50-136); ANION GAP 11.2 (8-16); ASPARTATE AMINOTRANSFERASE 23 U/L (15-37); CALCIUM 8.3 mg/dL (8.5-10.1); CARBON DIOXIDE 24.4 mmol/L (21-32); CHLORIDE 106 mmol/L (98-107); CREATININE 0.5 mg/dL (0.6-1.3); GLUCOSE 120 mg/dL (74-106); POTASSIUM 4.6 mmol/L (3.5-5.1); SODIUM SERUM 137 mmol/L (136-145); TOTAL BILIRUBIN 0.5 mg/dL (0.0-1.0); TOTAL PROTEIN, SERUM 5.6 g/dL (6.4-8.2); UREA NITROGEN, BLOOD 22 mg/dL (7-18)
[2023-07-15] MEDS ORDERED: MORPHINE SULFATE 2 MG/ML SYR IVP ONE (01:45)
[2023-07-15 02:35] LABS: FLU A ANTIGEN negative (NEGATIVE)
[2023-07-15 02:39] LABS: FLU B ANTIGEN POSITIVE (NEGATIVE)
[2023-07-15] MEDS ORDERED: POTASSIUM CHLORIDE 10 MEQ TABER PO PRN (04:25)
[2023-07-15] MEDS ORDERED: MAG SULF 2000 MG/WATER PREMIX 50 ML IV PRN (04:25)
[2023-07-15] MEDS ORDERED: ONDANSETRON 4 MG/2 ML VIAL IVP PRN (04:25)
[2023-07-15] MEDS ORDERED: HYDROcodone/APAP 5/325 MG 1 TAB TAB PO PRN (04:25)
[2023-07-15] MEDS ORDERED: KCL 20 MEQ IN 100 mL PREMIX 200 ML IV PRN (04:25)
[2023-07-15] MEDS ORDERED: MAGNESIUM OXIDE 400 MG TAB PO PRN (04:25)
[2023-07-15] MEDS ORDERED: ACETAMINOPHEN 325 MG TAB PO PRN (04:25)
[2023-07-15] MEDS: NACL 0.9% 1,000 ML IV SCH (05:01)
[2023-07-15] MEDS: AZITHROMYCIN 500 MG in DEXTROSE 5% 250 ML IV SCH (07:50)
[2023-07-15] MEDS: cefTRIAXone 2,000 MG in DEXTROSE 5% 100 ML IV SCH (07:50)
[2023-07-15] MEDS ORDERED: OSELTAMIVIR PHOSPHATE 75 MG CAP PO SCH (09:00)
[2023-07-15] MEDS ORDERED: cefTRIAXone 2,000 MG VIAL ONE (09:57)
[2023-07-15] MEDS ORDERED: AZITHROMYCIN 500 MG INJ VIAL IV ONE (09:57)
[2023-07-15] MEDS: ASPIRIN 81 MG TAB.CHEW PO SCH (10:28)
[2023-07-15] MEDS: ATORVASTATIN 20 MG TAB PO SCH (10:28)
[2023-07-15 11:14] LABS: APPEARANCE,URINE CLEAR (CLEAR); BILIRUBIN,URINE NEGATIVE (NEGATIVE); BLOOD, URINE NEGATIVE (NEGATIVE); COLOR,URINE YELLOW (YELLOW); LEUKOCYTE ESTERASE ,URINE NEGATIVE (NEGATIVE); NITRITE, URINE NEGATIVE (NEGATIVE); PH,URINE 5.5 (5.0-9.0); PROTEIN,URINE NEGATIVE (NEGATIVE); UGLUCOSE NEGATIVE (NEGATIVE); UROBILINOGEN,URINE 0.2 EU/dL (0.2 - 1)
[2023-07-15 21:10] VITALS: PULSE 102; RESP 20; O2SAT 96
[2023-07-15 22:05] VITALS: BP 101/55; PULSE 102; RESP 20; TEMP 96.8; O2SAT 93
[2023-07-15 23:00] VITALS: PULSE 68; RESP 20; O2SAT 92
[2023-07-16] VITALS (12 sets, daily range): BP systolic 103–144; BP diastolic 45–72; PULSE 94–105; RESP 18–20; TEMP 96.9–97.1; O2SAT 96–100
[2023-07-16] MEDS: NACL 0.9% 1,000 ML IV SCH (00:33)
[2023-07-16 07:53] LABS: ALANINE AMINOTRANSFERASE 13 U/L (12-78); ALBUMIN 1.6 g/dL (3.4-5.0); ALKALINE PHOSPHATASE 241 U/L (50-136); ANION GAP 16.6 (8-16); ASPARTATE AMINOTRANSFERASE 41 U/L (15-37); CALCIUM 8.2 mg/dL (8.5-10.1); CARBON DIOXIDE 18.9 mmol/L (21-32); CHLORIDE 105 mmol/L (98-107); CREATININE 0.6 mg/dL (0.6-1.3); GLUCOSE 104 mg/dL (74-106); MAGNESIUM 1.7 mg/dL (1.8-2.4); POTASSIUM 4.5 mmol/L (3.5-5.1); SODIUM SERUM 136 mmol/L (136-145); TOTAL BILIRUBIN 0.5 mg/dL (0.0-1.0); TOTAL PROTEIN, SERUM 5.8 g/dL (6.4-8.2); UREA NITROGEN, BLOOD 22 mg/dL (7-18)
[2023-07-16 08:14] LABS: BASOPHILS % (AUTO) 0.1 % (0.0-2.0); HEMATOCRIT 32.5 % (36-48); HEMOGLOBIN 10.9 g/dL (12.0-16.0); LYMPHOCYTES # (AUTO) 0.8 K/uL (2.5-16.5); LYMPHOCYTES % (AUTO) 8.7 % (20.5-51.1); MEAN CORPUSCULAR HEMOGLOBIN 34 pg (27-31); MEAN CORPUSCULAR HGB CONC 34 g/dL (33-37); MEAN CORPUSCULAR VOLUME 100.6 fL (80-94); MONOCYTES # (AUTO) 0.8 K/uL (0.8-1.0); MONOCYTES % (AUTO) 8.1 % (1.7-9.3); NEUTROPHILS # (AUTO) 7.8 K/uL (1.8-7.7); NEUTROPHILS % (AUTO) 83.1 % (42.2-75.2); PLATELET COUNT (AUTO) 334 K/uL (140-450); RED BLOOD CELL COUNT(AUTO) 3.23 MIL/uL (4.20-5.40); RED CELL DISTRIBUTION WIDTH 16.9 % (11.6-13.7); WHITE BLOOD COUNT (AUTO) 9.4 K/uL (4.8-10.8)
[2023-07-16] MEDS ORDERED: OSELTAMIVIR PHOSPHATE 30 MG CAP PO SCH (09:00)
[2023-07-16] MEDS: cefTRIAXone 2,000 MG in DEXTROSE 5% 100 ML IV SCH (09:19)
[2023-07-16] MEDS: AZITHROMYCIN 500 MG in DEXTROSE 5% 250 ML IV SCH (09:20)
[2023-07-16] MEDS: ASPIRIN 81 MG TAB.CHEW PO SCH (09:20)
[2023-07-16] MEDS: ATORVASTATIN 20 MG TAB PO SCH (09:20)
[2023-07-16 09:43] LABS: INR 1.12 (0.8-1.2); PROTHROMBIN TIME 11.7 secs (10.8-13.4)
[2023-07-16] MEDS: MORPHINE SULFATE 2 MG/ML SYR IVP PRN ×2 (11:42→17:51)
== END 2023-07-16 19:25 | disposition hospice, home (50) | DRG 180 ==
LOC: MED 21:18 → MTU 07-15 04:25
PROVIDERS: ADMIT Hospitalist; ATTEND Hospitalist
DX: C34.91 Malignant neoplasm of unspecified part of right bronchus or lung (principal); I63.9 Cerebral infarction, unspecified; J96.00 Acute respiratory failure, unspecified whether with hypoxia or hypercapnia; E44.1 Mild protein-calorie malnutrition; Z68.1 Body mass index [BMI] 19.9 or less, adult; R64 Cachexia; J91.0 Malignant pleural effusion; Z20.822 Contact with and (suspected) exposure to COVID-19; I10 Essential (primary) hypertension; Z66 Do not resuscitate; J10.1 Influenza due to other identified influenza virus with other respiratory manifestations; R29.711 NIHSS score 11; E11.9 Type 2 diabetes mellitus without complications; Z85.118 Personal history of other malignant neoplasm of bronchus and lung; Z79.899 Other long term (current) drug therapy; Z79.891 Long term (current) use of opiate analgesic
CPT/HCPCS: 36415; 70450; 71045; 71250; 76604; 80053; 81003; 83735; 84484; 85025; 85610; 85730; 87081; 92526; 93005; 97112; 97163-GP; J0456; J0696; J2270; J7060; Q0092; Q9967